=== PATIENT | female | born 1960 | race Two or more races ===

== ENCOUNTER 2019-11-20 04:41 | Emergency (ER) | payer SELFPAY ==
[~2019-11-20] VITALS: Ht 172.7 cm; Wt 88.5 kg
[2019-11-20 04:41] VITALS: BP 132/100
[2019-11-20] MEDS ORDERED: LABETALOL HCL IV 100MG VIAL IV ONE (05:00)
[2019-11-20] MEDS ORDERED: LABETALOL HCL IV 100MG VIAL ONE (05:00)
--- NOTE | 2019-11-20 05:36 | NUR ---
Patient discharged to home in stable condition. Written and verbal after care instructions given. Patient verbalizes understanding of instruction. Pt ambulatory with a steady gait
== END 2019-11-20 05:38 | disposition home or self-care (01) ==
LOC: ER 04:48
DX: R00.2 Palpitations (principal); E06.3 Autoimmune thyroiditis; Z91.048 Other nonmedicinal substance allergy status
CPT/HCPCS: J3490